=== PATIENT | female | born 1930 | race Caucasian/White ===

== ENCOUNTER 2020-07-15 21:10 | Observation (INO) ==
--- NOTE | 2020-07-15 21:28 | ERNOTE ---
Neuro HPI ER Record Presenting Symptoms: confusion, falling Time Seen by Provider: 07/15/20 21:12 Source: EMS Exam Limitations: clinical condition Allergies/Adverse Reactions: Allergies Allergy/AdvReac Type Severity Reaction Status Date / Time Penicillins AdvReac Mild ITCHING, Verified 07/15/20 21:43 N/V orange juice AdvReac Other Verified 07/15/20 21:43 Home Medications: HOME MEDICATIONS ascorbic acid (vitamin C) 1,000 mg tablet 1 g PO DAILY tab 04/20/18 [Last Taken Unknown] blood sugar diagnostic See Dose Instructions .ROUTE .MEDSUPPLY #20 ea 04/20/18 [Last Taken Unknown] blood-glucose meter See Dose Instructions .ROUTE .MEDSUPPLY #1 ea 04/20/18 [Last Taken Unknown] calcium carbonate 500 mg calcium (1,250 mg) tablet 500 mg PO DAILY tab 04/20/18 [Last Taken Unknown] cyanocobalamin (B12)-cobamamide 5,000 mcg-100 mcg sublingual lozenge madyson SL 04/20/18 [Last Taken Unknown] ferrous gluconate 324 mg (38 mg iron) tablet 324 mg PO DAILY tab 04/20/18 [Last Taken Unknown] clzurwswypid-dbamygbd-dabiox 1 tab PO DAILY 04/20/18 [Last Taken Unknown] nitroglycerin 0.4 mg sublingual tablet 0.4 mg SL Q5-15M PRN 04/20/18 [Last Taken Unknown] pyridoxine (vitamin B6) 100 mg tablet 100 mg PO DAILY tab 04/20/18 [Last Taken Unknown] vitamin E (dl, acetate) 450 mg (1,000 unit) capsule 1,000 unit PO DAILY 04/20/18 [Last Taken Unknown] metoprolol tartrate 100 mg tablet See Rx Instructions .ROUTE .COMPLEX #270 unknown measurement unit code: tablet 03/30/20 [Last Taken Unknown] losartan 50 mg tablet 50 mg PO DAILY #30 tab 05/12/20 [Last Taken Unknown] Durable Medical Equipment 0 .ROUTE .MEDSUPPLY #1 ea 06/23/20 [Last Taken Unknown] walker See Rx Instructions .ROUTE .MEDSUPPLY #1 ea 06/23/20 [Last Taken Unknown] apixaban 2.5 mg tablet See Rx Instructions .ROUTE .COMPLEX #180 unknown measurement unit code: tablet 07/03/20 [Last Taken Unknown] escitalopram oxalate 5 mg tablet 5 mg PO DAILY #90 tab 07/03/20 [Last Taken Unknown] simvastatin 40 mg tablet See Rx Instructions .ROUTE .COMPLEX #90 unknown measurement unit code: tablet 07/03/20 [Last Taken Unknown] torsemide 10 mg tablet See Rx Instructions .ROUTE .COMPLEX #90 unknown measurement unit code: tablet 07/03/20 [Last Taken Unknown] glimepiride 4 mg tablet See Rx Instructions .ROUTE .COMPLEX #90 unknown measurement unit code: tablet 07/06/20 [Last Taken Unknown] ciprofloxacin HCl 500 mg tablet 500 mg PO BID #6 tab 07/14/20 [Last Taken Unknown] - History of Present Illness Narrative: Patient presents per [facility] ambulance. Family found patient confused on the floor. She was last seen about an hour prior to that around 194 this evening. Patient had taken a urine sample to the doctor earlier today and diagnosed with a UTI although was not seen. Patient does have baseline dementia but is much more confused over her normal. Onset: sudden onset Severity: severe Context: fall - Character of Deficits Additional Deficits: Present: impaired speech, decrease ability to stand Baseline Cognition: Present: alert but disoriented to time Baseline Gait: Present: walks w/o assistance Review of Systems - Narrative Narrative: ROS taken from patient's daughter - Review of Systems Constitutional: Present: recent illness, weakness, fatigue Respiratory: Absent: shortness of breath, cough Gastrointestinal/Abdominal: Absent: nausea, vomiting Genitourinary: Present: See HPI Skin: Absent: rash Neurological: Present: dizziness/light-headedness, weakness Hematologic/Lymphatic: Present: easy bruising Medical History (Last Reviewed 07/16/20 @ 00:26 by Reji Saxena DO) Anemia Onset Date: Unknown Aortic sclerosis Onset Date: Unknown Blood transfusion Onset Date: Unknown CAD (coronary artery disease) Onset Date: Unknown Cataract Onset Date: Unknown Diabetes Onset Date: Unknown HTN (hypertension) Onset Date: Unknown Hyperlipidemia Onset Date: Unknown Surgical History: Surgical History (Last Reviewed 07/16/20 @ 00:26 by Reji Saxena DO) Hx of CABG Onset Date: ~1995 Hx of adenoidectomy Onset Date: Unknown Hx of section x4 Hx of colonoscopy Onset Date: 07/20/09 Dr. Bermudez - normal Hx of tonsillectomy Onset Date: Unknown S/P ORIF (open reduction internal fixation) fracture Onset Date: 01/13/04 Left ankle - Dr. Lindsey Uterine cyst Onset Date: Unknown Cyst removed Family History: Family History (Last Reviewed 07/16/20 @ 00:26 by Reji Saxena DO) Brother History of bowel resection CAD (coronary artery disease) Brother , Age 54 Asbetos Related Disease Diptheria Father , Age 63 Heart disease Mother , Age 69 Diabetes Heart disease Sister Diabetes Cancer Colon Cancer Sister , Age 81 Hx of heart bypass surgery from heart bypass. Social History: (Last Reviewed 07/16/20 @ 00:26 by Reji Saxena DO) Social History: Marital status: / lives independently: Yes current occupational status: retired Highest education level completed: high school graduate Service: No Tobacco: Smoking Status: Never smoker Alcohol: alcohol intake: never Substance Use: substance use type: does not use Dietary Habits: caffeine: Yes caffeine comment: 2 daily Physical Exam - Physical Exam General Appearance: Present: wd/wn, no apparent distress, other - Opens eyes spontaneously but does not obey commands Head Exam: Present: normal inspection, no evidence of injury Eye Exam: Normal inspection: bilateral Ears, Nose, Throat: Present: normal ENT inspection Neck: Present: normal inspection, nontender Respiratory: Present: no respiratory distress, no accessory muscle use Cardiovascular/Chest: Present: regular rate, rhythm Gastrointestinal/Abdominal: Present: nondistended, soft Extremity Exam: Present: normal except - Neurological Exam: Present: other - Patient does not obey any commands. Patient does open eyes and occasionally moves her head. Skin Exam: Present: normal color, warm/dry Lymphatic Exam: Present: no adenopathy Vel Coma Scale - Assess Eye Opening: Spontaneous Motor: Localizes to Pain Verbal: None - Total Coma Scale Total: 10 Initial Stroke Assessment - Date/Time of assessment Stroke Scale Date: 07/15/20 Stroke Scale Time: 21:10 - NIH Stroke Scale Level of Consciousness: Alert LOC Questions (Year and Age): Answers neither correctly LOC Commands (open/close eyes/fist): Performs one correctly Lateral Gaze Paresis: None Visual Field Loss: No visual loss Facial Palsy: Normal movement Right Arm Motor (10 sec hold): No drift Left Arm Motor (10 sec hold): No drift Right Leg Motor (5 sec hold): Not testable Left Leg Motor (5 sec hold): Not testable Limb Ataxia (finger/nose heel/rodriguez): Untestable Sensory Loss (pinprick arms/legs/face): No sensory loss Language Aphasia (description/naming/reading): No aphasia; normal Dysarthria (speech clarity): Normal articulation Neglect Inattention (visual/tactile/auditory/spatial/person): Partial neglect Initial Stroke Scale Score:: 4 Progress - Results and Orders Patient's Lab Results:: I have reviewed the patient's lab results. Results and Orders: Laboratory Tests 07/15/20 07/15/20 07/15/20 21:40 21:40 21:40 WBC 9.7 Hgb 11.2 L Hct 33.9 L Plt Count 231 PT 12.7 H INR (Anticoag Therapy) 1.30 H PTT ([facility]) 26.9 Sodium 137 Potassium 3.1 L Chloride 99 BUN 32 H Creatinine 1.80 H Random Glucose 206 H Lactic Acid, Venous Calcium 8.9 Total Bilirubin 0.5 AST 21 ALT 24 Alkaline Phosphatase 63 Creatine Kinase 37 07/15/20 21:40 WBC Hgb Hct Plt Count PT INR (Anticoag Therapy) PTT ([facility]) Sodium Potassium Chloride BUN Creatinine Random Glucose Lactic Acid, Venous 2.6 H* Calcium Total Bilirubin AST ALT Alkaline Phosphatase Creatine Kinase Laboratory Tests 07/15/20 23:22 Urine Color Yellow Urine Appearance Clear Urine pH 7.5 Ur Specific Range 1.015 Urine Ketones Negative Urine Blood Negative Urine Nitrate Negative Ur Leukocyte Esterase Negative - Vital Signs Patient's Vital Signs:: I have reviewed the patient's vital signs. - EKG EKG #1 EKG: RBBB, nonspecific ST T wave changes - X-Ray X-Ray #1 X-Ray: chest Interpretation: Reviewed by me X-ray Comments: IMPRESSION: Bilateral perihilar and bibasilar heterogeneous opacities may represent pulmonary edema. Multilobar pneumonia could also be considered. Probable small left pleural effusion. Electronically signed by Chioma Gardner D.O.. - CT/Ultrasound CT/Ultrasound Narrative: CT brain without contrast: 1. No evidence of acute infarct or parenchymal hemorrhage. 2. Remote lacunar infarcts in the basal ganglia. 3. Chronic small vessel ischemic changes. 4. No fracture or extra-axial fluid collections. - Progress/Reassessment Progress Note-Subjective: 07/15/20 21:42 The patient's daughter whom she has been staying with came back into the room and is able to get further history from her. She states that the patient has been not her normal for 2 or 3 days and the patient has been living with this daughter for 3 weeks because she was no longer safe to stay alone due to her dementia. Daughter states that the patient has taken antibiotics today for her UTI but has not improved and has actually been getting worse. 07/16/20 00:27 Patient did improve to obeying some commands but still very confused and not answering questions. 07/16/20 00:[address] Graham she agrees with observation admission fluids and IV antibiotics. Departure Clinical Impression: UTI (urinary tract infection) Qualifiers: Urinary tract infection type: acute pyelonephritis Qualified Code(s): N10 - Acute pyelonephritis Altered mental status Qualifiers: Altered mental status type: delirium Qualified Code(s): R41.0 - Disorientation, unspecified - Departure Disposition: Still a patient Condition: Good
[2020-07-15 21:45] LABS: Hematocrit 33.9 % (37.0-47.0); Hemoglobin 11.2 gm/dL (12.5-16.0); Mean Cell Volume 95.5 fl (78-100); Mean Corpuscular Hemoglobin 31.5 pg (27-31); Mean Platelet Volume 10.1 fl (8-12.5); Neutrophil # 6.5 K/mm3 (1.3-6.0); Neutrophil % 67.7 % (42-75.0); Platelet Count 231 K/mm3 (150-450); Red Blood Count 3.55 M/mm3 (4.2-5.4); Red Cell Distribution Width 12.6 % (11.5-14.0); White Blood Count 9.7 K/mm3 (4.0-10.5)
[2020-07-15 21:56] LABS: Prothrombin Time (Patient) 12.7 Seconds (9.1-10.7)
[2020-07-15 21:57] LABS: INR 1.3 INR (0.92-1.08); Partial Thrombolplastin Time 26.9 Seconds (24-32)
[2020-07-15 21:58] LABS: Albumin * 2.9 gm/dl (3.4-5.0); Anion Gap 11.7 mmol/L (6.8-13.8); BUN/Creatinine Ratio 17.8 (9.0-21.6); Bilirubin, Total 0.5 mg/dL (0.0-1.1); Ca. Corrected For Albumin 9.5 mg/dL (8.4-10.2); Calcium * 8.9 mg/dL (7.9-10.9); Carbon Dioxide 29.4 mmol/L (24-32.6); Potassium 3.1 mmol/L (3.4-4.6); Total Protein 7.2 gm/dL (6.2-8.2)
[2020-07-15] MEDS ORDERED: cefTRIAXone SODIUM 1,000 MG/100 ML BAG IV ONE (23:23)
[2020-07-15 23:36] LABS: Urine Bilirubin Negative (NEGATIVE); Urine Blood Negative /ul (NEGATIVE); Urine Ketone Negative (NEGATIVE); Urine Nitrite Negative (NEGATIVE); Urine Protein Negative (NEGATIVE); Urine Specific Gravity 1.015 SP.GR. (1.005-1.010); Urine Urobilinogen Normal (NORMAL); Urine pH 7.5 pH (5.0-7.0)
[2020-07-15 23:42] LABS: Urine Appearance Clear (CLEAR); Urine Bacteria None Seen; Urine Color Yellow; Urine RBC None Seen /hpf (0-5); Urine WBC None Seen /hpf (0-5)
[2020-07-16] MEDS: NORMAL SALINE 1,000 ML IV PRN ×2 (00:55→08:29)
[2020-07-16] MEDS ORDERED: METOPROLOL TARTRATE 100 MG TABLET PO SCH (09:00)
[2020-07-16] MEDS ORDERED: OMEGA-3 FATTY ACIDS 1 CAP CAPSULE PO SCH (09:00)
[2020-07-16] MEDS ORDERED: TORSEMIDE 10 MG TABLET PO SCH (09:00)
[2020-07-16] MEDS ORDERED: ESCITALOPRAM OXALATE 10 MG TAB PO SCH (09:00)
[2020-07-16] MEDS ORDERED: GLIMEPIRIDE 4 MG TABLET PO SCH (09:00)
[2020-07-16] MEDS ORDERED: APIXABAN 2.5 MG TABLET PO SCH (09:00)
[2020-07-16] MEDS ORDERED: LOSARTAN POTASSIUM 50 MG TABLET PO SCH (09:00)
[2020-07-16] MEDS ORDERED: POTASSIUM BICARBONATE/CIT AC 25 MEQ TABLET.EFF PO ONE (09:21)
[2020-07-16] MEDS ORDERED: CIPROFLOXACIN HCL 500 MG TABLET PO SCH (10:00)
--- NOTE | 2020-07-16 10:06 | HPDIS ---
Chief Complaint - Chief Complaint Date of Service: 07/16/20 Time of Service: 09:29 Chief Complaint: Altered mental status, fall History of Present Illness: 89-year-old female with a past medical history of dementia, anemia, aortic scl erosis, CAD, CHF, CKD, A. fib, normal pressure hydrocephalus diabetes, hypertension, hyperlipidemia presents from home status post fall. Family found the patient confused on the floor and she was brought to the emergency department. Patient had been started on ciprofloxacin for a UTI by her PCP the day prior to presentation. CT head in the emergency room was negative for any acute intracranial process. 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 CT scan was compared to a prior head CT performed on April 22, 2020. She had mild hypokalemia 3.1, GFR of 28 which was slightly worse than her baseline of 30-37, lactic acid of 2.6, UA was negative. Family states that she was evaluated for normal pressure hydrocephalus but was determined to not be a good candidate for a spinal tap secondary to her conges tive heart failure. Admitted for UTI with altered mental status and started on Rocephin. Medical History (Last Reviewed 07/16/20 @ 03:10 by Amber Gutierrez RN) Anemia Onset Date: Unknown Aortic sclerosis Onset Date: Unknown Blood transfusion Onset Date: Unknown CAD (coronary artery disease) Onset Date: Unknown Cataract Onset Date: Unknown Diabetes Onset Date: Unknown HTN (hypertension) Onset Date: Unknown Hyperlipidemia Onset Date: Unknown Surgical History: Surgical History (Last Reviewed 07/16/20 @ 03:10 by Amber Gutierrez RN) Hx of CABG Onset Date: ~1995 Hx of adenoidectomy Onset Date: Unknown Hx of section x4 Hx of colonoscopy Onset Date: 07/20/09 Dr. Bermudez - normal Hx of tonsillectomy Onset Date: Unknown S/P ORIF (open reduction internal fixation) fracture Onset Date: 01/13/04 Left ankle - Dr. Lindsey Uterine cyst Onset Date: Unknown Cyst removed Family History: Family History (Last Reviewed 07/16/20 @ 00:26 by Reji Saxena DO) Brother History of bowel resection CAD (coronary artery disease) Brother , Age 54 Asbetos Related Disease Diptheria Father , Age 63 Heart disease Mother , Age 69 Diabetes Heart disease Sister Diabetes Cancer Colon Cancer Sister , Age 81 Hx of heart bypass surgery from heart bypass. Social History: (Last Reviewed 07/16/20 @ 00:26 by Reji Saxena DO) Social History: Marital status: / lives independently: Yes current occupational status: retired Highest education level completed: high school graduate Service: No Tobacco: Smoking Status: Never smoker Alcohol: alcohol intake: never Substance Use: substance use type: does not use Dietary Habits: caffeine: Yes caffeine comment: 2 daily Review Of Systems (GEN) - Review of Systems Generalized/Overall Review: Absent: Fever Respiratory: Absent: Shortness of Breath Cardiac: Absent: Chest Pain Abdominal: Absent: Abdominal Pain Genitourinary: Present: Incontinent Misc: All systems neg except as marked Immunizations: IMMUNIZATION HX Immunizations Up to Date Yes Hx Pneumococcal Vaccination Yes Allergies/Adverse Reactions: Allergies Allergy/AdvReac Type Severity Reaction Status Date / Time Penicillins AdvReac Mild ITCHING, Verified 07/15/20 21:43 N/V orange juice AdvReac Other Verified 07/15/20 21:43 Home Medications: HOME MEDICATIONS ascorbic acid (vitamin C) 1,000 mg tablet 1 g PO DAILY tab 04/20/18 [Last Taken Unknown] blood sugar diagnostic See Dose Instructions .ROUTE .MEDSUPPLY #20 ea 04/20/18 [Last Taken Unknown] blood-glucose meter See Dose Instructions .ROUTE .MEDSUPPLY #1 ea 04/20/18 [Last Taken Unknown] calcium carbonate 500 mg calcium (1,250 mg) tablet 500 mg PO DAILY tab 04/20/18 [Last Taken Unknown] cyanocobalamin (B12)-cobamamide 5,000 mcg-100 mcg sublingual lozenge madyson SL 04/20/18 [Last Taken Unknown] ferrous gluconate 324 mg (38 mg iron) tablet 324 mg PO DAILY tab 04/20/18 [Last Taken Unknown] gbpawvucwiqn-nxhidnnr-hdcxvl 1 tab PO DAILY 04/20/18 [Last Taken Unknown] nitroglycerin 0.4 mg sublingual tablet 0.4 mg SL Q5-15M PRN 04/20/18 [Last Taken Unknown] pyridoxine (vitamin B6) 100 mg tablet 100 mg PO DAILY tab 04/20/18 [Last Taken Unknown] vitamin E (dl, acetate) 450 mg (1,000 unit) capsule 1,000 unit PO DAILY 04/20/18 [Last Taken Unknown] losartan 50 mg tablet 50 mg PO DAILY #30 tab 05/12/20 [Last Taken Unknown] Durable Medical Equipment 0 .ROUTE .MEDSUPPLY #1 ea 06/23/20 [Last Taken Unknown] walker See Rx Instructions .ROUTE .MEDSUPPLY #1 ea 06/23/20 [Last Taken Unknown] escitalopram oxalate 5 mg tablet 5 mg PO DAILY #90 tab 07/03/20 [Last Taken Unknown] ciprofloxacin HCl 500 mg tablet 500 mg PO BID #6 tab 07/14/20 [Last Taken Unknown] Apixaban [Eliquis] 2.5 mg PO BID 07/16/20 [Last Taken Unknown] Glimepiride 4 mg PO DAILY 07/16/20 [Last Taken Unknown] Metoprolol Tartrate 100 mg PO BID 07/16/20 [Last Taken Unknown] [place]-3 Fatty Acids/Fish Oil [Fish Oil 1,000 mg Capsule] 2 ea PO BID 07/16/20 [Last Taken Unknown] Simvastatin 40 mg PO DAILY 07/16/20 [Last Taken Unknown] Torsemide 10 mg PO DAILY 07/16/20 [Last Taken Unknown] Exam - Exam Vital Signs: Vital Signs - Last Taken Temp 36.9 C 07/16/20 07:50 Pulse 68 07/16/20 07:50 Resp 20 07/16/20 07:50 BP 128/47 07/16/20 07:50 Pulse Ox 96 07/16/20 07:50 Constitutional: Present: Alert, Cooperative, Well developed, Well nourished, No distress, Elderly. Absent: Oriented x3 - She responds to verbal and tactile stimuli but does not respond to questions. ENT Exam: Present: hearing grossly normal, moist mucous membranes Eye Exam: bilateral eye: normal inspection, PERRL Neck: Present: non-tender, supple. Absent: lymphadenopathy (R), lymphadenopathy (L) Back Exam: Present: no CVA tenderness. Absent: vertebral tenderness Respiratory: Present: no respiratory distress, no accessory muscle use, crackles, No wheezing. Absent: rhonchi - Mild Cardiovascular/Chest: Present: normal peripheral pulses, regular rate, rhythm, no edema, systolic murmur Peripheral Pulses: dorsalis-pedis (R): 1+, dorsalis-pedis (L): 1+ Abdomen: Present: Normal bowel sounds, soft, nontender Extremity: Present: no pedal edema Skin Exam: Present: normal color, warm/dry Neurologic: Present: alert Appearance: Present: appropriate appearance, impaired insight. Absent: appro priate insight Eye contact: Present: cooperative Thoughts: Present: normal mood /affect Diagnostic Studies: Abnormal Lab Results 07/15/20 07/15/20 07/15/20 Range/Units 21:40 21:40 21:40 RBC 3.55 L (4.2-5.4) M/mm3 Hgb 11.2 L (12.5-16.0) gm/dL Hct 33.9 L (37.0-47.0) % MCH 31.5 H (27-31) pg Immature Gran % (Auto) 0.60 H (0.001-0.429) % Immature Gran # (Auto) 0.06 H (0.000-0.0310) K/mm3 Monocytes % 10.6 H (0.0-9) % Neutrophils # 6.5 H (1.3-6.0) K/mm3 ESR 102 H (0-15) mm/hr PT 12.7 H (9.1-10.7) Seconds INR (Anticoag Therapy) 1.30 H (0.92-1.08) INR Potassium (3.4-4.6) mmol/L BUN (3-23) mg/dL Creatinine (0.4-1.4) mg/dL Est GFR (Non-Af Amer) (60-130) mL/min Random Glucose (70-110) mg/dL Lactic Acid, Venous (0.4-2.0) mmol/L Albumin (3.4-5.0) gm/dl 07/15/20 07/15/20 07/16/20 Range/Units 21:40 21:40 00:25 RBC (4.2-5.4) M/mm3 Hgb (12.5-16.0) gm/dL Hct (37.0-47.0) % MCH (27-31) pg Immature Gran % (Auto) (0.001-0.429) % Immature Gran # (Auto) (0.000-0.0310) K/mm3 Monocytes % (0.0-9) % Neutrophils # (1.3-6.0) K/mm3 ESR (0-15) mm/hr PT (9.1-10.7) Seconds INR (Anticoag Therapy) (0.92-1.08) INR Potassium 3.1 L (3.4-4.6) mmol/L BUN 32 H (3-23) mg/dL Creatinine 1.80 H (0.4-1.4) mg/dL Est GFR (Non-Af Amer) 28 L (60-130) mL/min Random Glucose 206 H (70-110) mg/dL Lactic Acid, Venous 2.6 H* 2.7 H* (0.4-2.0) mmol/L Albumin 2.9 L (3.4-5.0) gm/dl Laboratory Results WBC 9.7 K/mm3 (4.0-10.5) 07/15/20 21:40 RBC 3.55 M/mm3 (4.2-5.4) L 07/15/20 21:40 Hgb 11.2 gm/dL (12.5-16.0) L 07/15/20 21:40 Hct 33.9 % (37.0-47.0) L 07/15/20 21:40 MCV 95.5 fl (78-100) 07/15/20 21:40 MCH 31.5 pg (27-31) H 07/15/20 21:40 MCHC 33.0 g/dl (32-36) 07/15/20 21:40 RDW 12.6 % (11.5-14.0) 07/15/20 21:40 Plt Count 231 K/mm3 (150-450) 07/15/20 21:40 MPV 10.1 fl (8-12.5) 07/15/20 21:40 Immature Gran % (Auto) 0.60 % (0.001-0.429) H 07/15/20 21:40 Immature Gran # (Auto) 0.06 K/mm3 (0.000-0.0310) H 07/15/20 21:40 Neutrophils % 67.7 % (42-75.0) 07/15/20 21:40 Lymphocytes % 20.1 % (20-51) 07/15/20 21:40 Monocytes % 10.6 % (0.0-9) H 07/15/20 21:40 Eosinophils % 0.7 % (0.0-3.0) 07/15/20 21:40 Basophils % 0.3 % (0.0-1.0) 07/15/20 21:40 Nucleated RBC % 0.0 k/mm3 (0-1) 07/15/20 21:40 Neutrophils # 6.5 K/mm3 (1.3-6.0) H 07/15/20 21:40 Lymphocytes # 1.94 k/mm3 (1.5-3.5) 07/15/20 21:40 Monocytes # 1.0 k/mm3 (0.0-1.0) 07/15/20 21:40 Eosinophils # 0.1 k/mm3 (0.0-0.7) 07/15/20 21:40 Absolute Basophils 0.0 k/mm3 (0.0-0.1) 07/15/20 21:40 ESR 102 mm/hr (0-15) H 07/15/20 21:40 PT 12.7 Seconds (9.1-10.7) H 07/15/20 21:40 INR (Anticoag Therapy) 1.30 INR (0.92-1.08) H 07/15/20 21:40 PTT (Dent) 26.9 Seconds (24-32) 07/15/20 21:40 Sodium 137 mmol/L (132-142) 07/15/20 21:40 Plasma Sodium 139 mmol/L (130-142) 07/15/20 21:40 Potassium 3.1 mmol/L (3.4-4.6) L 07/15/20 21:40 Chloride 99 mmol/L (97-106) 07/15/20 21:40 Carbon Dioxide 29.4 mmol/L (24-32.6) 07/15/20 21:40 Anion Gap 11.7 mmol/L (6.8-13.8) 07/15/20 21:40 BUN 32 mg/dL (3-23) H 07/15/20 21:40 Creatinine 1.80 mg/dL (0.4-1.4) H 07/15/20 21:40 Est GFR (Non-Af Amer) 28 mL/min (60-130) L 07/15/20 21:40 BUN/Creatinine Ratio 17.8 (9.0-21.6) 07/15/20 21:40 Random Glucose 206 mg/dL (70-110) H 07/15/20 21:40 Lactic Acid, Venous 2.7 mmol/L (0.4-2.0) H* 07/16/20 00:25 Calcium 8.9 mg/dL (7.9-10.9) 07/15/20 21:40 Calcium Adj for Albumin 9.5 mg/dL (8.4-10.2) 07/15/20 21:40 Total Bilirubin 0.5 mg/dL (0.0-1.1) 07/15/20 21:40 AST 21 U/L (0-48) 07/15/20 21:40 ALT 24 U/L (19-67) 07/15/20 21:40 Alkaline Phosphatase 63 U/L (50-170) 07/15/20 21:40 Creatine Kinase 37 U/L (0-259) 07/15/20 21:40 Total Protein 7.2 gm/dL (6.2-8.2) 07/15/20 21:40 Albumin 2.9 gm/dl (3.4-5.0) L 07/15/20 21:40 Urine Color Yellow 07/15/20 23:22 Urine Appearance Clear (CLEAR) 07/15/20 23:22 Urine pH 7.5 pH (5.0-7.0) 07/15/20 23:22 Ur Specific [place] 1.015 SP.GR. (1.005-1.010) 07/15/20 23:22 Urine Protein Negative mg/dL (NEGATIVE) 07/15/20 23:22 Urine Glucose (UA) Negative mg/dL (NEGATIVE) 07/15/20 23:22 Urine Ketones Negative mg/dL (NEGATIVE) 07/15/20 23:22 Urine Blood Negative /ul (NEGATIVE) 07/15/20 23:22 Urine Nitrate Negative (NEGATIVE) 07/15/20 23:22 Urine Bilirubin Negative mg/dl (NEGATIVE) 07/15/20 23:22 Urine Urobilinogen Normal EU/dl (NORMAL) 07/15/20 23:22 Ur Leukocyte Esterase Negative /ul (NEGATIVE) 07/15/20 23:22 Urine RBC None seen /hpf (0-5) 07/15/20 23:22 Urine WBC None seen /hpf (0-5) 07/15/20 23:22 Ur Epithelial Cells None seen /hpf (0-5) 07/15/20 23:22 Urine Bacteria None seen (NONE) 07/15/20 23:22 Urine Culture Comments Culture to follow 07/15/20 23:22 SARS-CoV-2 (PCR) Not detected (NotDetected) 07/16/20 00:35 Assessment/Plan - Narrative Narrative: 89-year-old female with a past medical history of dementia, anemia, aortic sclerosis, CAD, CHF, CKD, A. fib, normal pressure hydrocephalus diabetes, hypertension, hyperlipidemia presents from home status post fall. Family found the patient confused on the floor and she was brought to the emergency department. Patient had been started on ciprofloxacin for a UTI by her PCP the day prior to presentation. CT head in the emergency room was negative for any acute intracranial process. 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 CT scan was compared to a prior head CT performed on April 22, 2020. She had mild hypokalemia 3.1, GFR of 28 which was slightly worse than her baseline of 30-37, lactic acid of 2.6, UA was negative. Family states that she was evaluated for normal pressure hydrocephalus but was determined to not be a good candidate for a spinal tap secondary to her congestive heart failure. She was admitted for UTI with altered mental status and started on Rocephin. Plan #1 restart her ciprofloxacin 500 mg twice daily #2 resume home medications for comorbidities #3 Start discharge planning - Assessment/Plan (1) UTI (urinary tract infection) Problem: Acute Qualifiers: Urinary tract infection type: acute pyelonephritis Qualified Code(s): N10 - Acute pyelonephritis (2) Altered mental status Problem: Acute Qualifiers: Altered mental status type: delirium Qualified Code(s): R41.0 - Disorientation, unspecified (3) Normal pressure hydrocephalus Problem: Suspected (4) Dementia Problem: Acute Qualifiers: Dementia type: unspecified type Dementia behavioral disturbance: without behavioral disturbance Qualified Code(s): F03.90 - Unspecified dementia without behavioral disturbance (5) Diabetes Problem: Chronic Qualifiers: Diabetes mellitus type: type 2 Diabetes mellitus residential insulin use: without residential use Diabetes mellitus complication status: with kidney complications Diabetes mellitus complication detail: with chronic kidney disease Chronic kidney disease stage: stage 3 (moderate) (6) CRF (chronic renal failure) Problem: Chronic Qualifiers: Chronic kidney disease stage: stage 3 (moderate) (7) Hyperlipidemia Problem: Chronic Qualifiers: Hyperlipidemia type: pure hypercholesterolemia Qualified Code(s): E78.00 - Pure hypercholesterolemia, unspecified; E78.0 - Pure hypercholesterolemia (8) Hypertension Problem: Chronic Qualifiers: Hypertension type: essential hypertension Qualified Code(s): I10 - Essential (primary) hypertension (9) Afib Problem: Chronic Qualifiers: Atrial fibrillation type: chronic (10) CHF (congestive heart failure) Problem: Chronic (1) UTI (urinary tract infection) Problem: Acute Qualifiers: Urinary tract infection type: acute pyelonephritis Qualified Code(s): N10 - Acute pyelonephritis (2) Altered mental status Problem: Acute Qualifiers: Altered mental status type: delirium Qualified Code(s): R41.0 - Disorientation, unspecified (3) Normal pressure hydrocephalus Problem: Suspected (4) Dementia Problem: Acute Qualifiers: Dementia type: unspecified type Dementia behavioral disturbance: without behavioral disturbance Qualified Code(s): F03.90 - Unspecified dementia without behavioral disturbance (5) Diabetes Problem: Chronic Qualifiers: Diabetes mellitus type: type 2 Diabetes mellitus termite treater insulin use: without termite treater use Diabetes mellitus complication status: with kidney complications Diabetes mellitus complication detail: with chronic kidney disease Chronic kidney disease stage: stage 3 (moderate) (6) CRF (chronic renal failure) Problem: Chronic Qualifiers: Chronic kidney disease stage: stage 3 (moderate) (7) Hyperlipidemia Problem: Chronic Qualifiers: Hyperlipidemia type: pure hypercholesterolemia Qualified Code(s): E78.00 - Pure hypercholesterolemia, unspecified; E78.0 - Pure hypercholesterolemia (8) Hypertension Problem: Chronic Qualifiers: Hypertension type: essential hypertension Qualified Code(s): I10 - Essential (primary) hypertension (9) Afib Problem: Chronic Qualifiers: Atrial fibrillation type: chronic (10) CHF (congestive heart failure) Problem: Chronic Hospital Course: 89-year-old female with a past medical history of dementia, anemia, aortic sclerosis, CAD, CHF, CKD, A. fib, normal pressure hydrocephalus diabetes, hypertension, hyperlipidemia presents from home status post fall. Family found the patient confused on the floor and she was brought to the emergency department. Patient had been started on ciprofloxacin for a UTI by her PCP the day prior to presentation. CT head in the emergency room was negative for any acute intracranial process. 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 CT scan was compared to a prior head CT performed on April 22, 2020. She had mild hypokalemia 3.1, GFR of 28 which was slightly worse than her baseline of 30-37, lactic acid of 2.6, UA was negative. Family states that she was evaluated for normal pressure hydrocephalus but was determined to not be a good candidate for a spinal tap secondary to her congestive heart failure. She was admitted for UTI with altered mental status and started on Rocephin. She is stable to be discharged home today with home hospice. The family has decided due to her comorbidities including dementia, congestive heart failure and normal pressure hydrocephalus she is not able to care for herself and they would like her to go home with hospice. Procedures Performed: none Results and Findings: Lab Pending Results 07/15/20 21:40: WBC 9.7, RBC 3.55 L, Hgb 11.2 L, Hct 33.9 L, MCV 95.5, MCH 31.5 H, MCHC 33.0, RDW 12.6, Plt Count 231, MPV 10.1, Immature Gran % (Auto) 0.60 H, Immature Gran # (Auto) 0.06 H, Neutrophils % 67.7, Lymphocytes % 20.1, Monocytes % 10.6 H, Eosinophils % 0.7, Basophils % 0.3, Nucleated RBC % 0.0, Neutrophils # 6.5 H, Lymphocytes # 1.94, Monocytes # 1.0, Eosinophils # 0.1, Absolute Basophils 0.0 07/15/20 21:40: ESR 102 H 07/15/20 21:40: PT 12.7 H, INR (Anticoag Therapy) 1.30 H, PTT ([place]) 26.9 07/15/20 21:40: Sodium 137, Plasma Sodium 139, Potassium 3.1 L, Chloride 99, Carbon Dioxide 29.4, Anion Gap 11.7, BUN 32 H, Creatinine 1.80 H, Est GFR (Non- Af Amer) 28 L, BUN/Creatinine Ratio 17.8, Random Glucose 206 H, Calcium 8.9, Calcium Adj for Albumin 9.5, Total Bilirubin 0.5, AST 21, ALT 24, Alkaline Phosphatase 63, Creatine Kinase 37, Total Protein 7.2, Albumin 2.9 L 07/15/20 21:40: Lactic Acid, Venous 2.6 H* 07/15/20 23:22: Urine Color Yellow, Urine Appearance Clear, Urine pH 7.5, Ur Specific [place] 1.015, Urine Protein Negative, Urine Glucose (UA) Negative, Urine Ketones Negative, Urine Blood Negative, Urine Nitrate Negative, Urine Bilirubin Negative, Urine Urobilinogen Normal, Ur Leukocyte Esterase Negative, Urine RBC None seen, Urine WBC None seen, Ur Epithelial Cells None seen, Urine Bacteria None seen, Urine Culture Comments Culture to follow 07/16/20 00:25: Lactic Acid, Venous 2.7 H* 07/16/20 00:35: SARS-CoV-2 (PCR) Not detected Discharge Location: Home Disposition: Hospice Home Home Health Agency: [facility] Condition: Poor Face to Face Encounter completed per [facility] Guidelines: Yes Discharge Activity: Activity as tolerated Discharge Diet: General/regular food Referrals: Marysol Storm MD [Primary Care Provider] - Additional Patient Instructions (free text): [facility] at home. Please fax discharge information. Complete Home Medications List: Complete Home Medication List: ascorbic acid (vitamin C) 1,000 mg tablet 1 g PO DAILY tab 04/20/18 blood sugar diagnostic See Dose Instructions .ROUTE .MEDSUPPLY #20 ea 04/20/18 blood-glucose meter See Dose Instructions .ROUTE .MEDSUPPLY #1 ea 04/20/18 calcium carbonate 500 mg calcium (1,250 mg) tablet 500 mg PO DAILY tab 04/20/18 cyanocobalamin (B12)-cobamamide 5,000 mcg-100 mcg sublingual lozenge madyson SL 04/20/18 ferrous gluconate 324 mg (38 mg iron) tablet 324 mg PO DAILY tab 04/20/18 [id number] 1 tab PO DAILY 04/20/18 nitroglycerin 0.4 mg sublingual tablet 0.4 mg SL Q5-15M PRN 04/20/18 pyridoxine (vitamin B6) 100 mg tablet 100 mg PO DAILY tab 04/20/18 vitamin E (dl, acetate) 450 mg (1,000 unit) capsule 1,000 unit PO DAILY 04/20/18 losartan 50 mg tablet 50 mg PO DAILY #30 tab 05/12/20 Durable Medical Equipment 0 .ROUTE .MEDSUPPLY #1 ea 06/23/20 walker See Rx Instructions .ROUTE .MEDSUPPLY #1 ea 06/23/20 escitalopram oxalate 5 mg tablet 5 mg PO DAILY #90 tab 07/03/20 ciprofloxacin HCl 500 mg tablet 500 mg PO BID #6 tab 07/14/20 Apixaban [Eliquis] 2.5 mg PO BID 07/16/20 Glimepiride 4 mg PO DAILY 07/16/20 Metoprolol Tartrate 100 mg PO BID 07/16/20 [place]-3 Fatty Acids/Fish Oil [Fish Oil 1,000 mg Capsule] 2 ea PO BID 07/16/20 Simvastatin 40 mg PO DAILY 07/16/20 Torsemide 10 mg PO DAILY 07/16/20
[2020-07-16 13:17] VITALS: BP 159/54
[2020-07-16] MEDS ORDERED: SIMVASTATIN 40 MG TABLET PO SCH (21:00)
== END 2020-07-16 13:39 | disposition hospice, home (50) ==
LOC: MS 21:10 → ER 21:10 → MS 07-16 01:57
PROVIDERS: ADMIT Internal Medicine; ATTEND Internal Medicine

== ENCOUNTER 2020-08-03 18:35 | Observation (INO) ==
[2020-08-03 19:34] LABS: Hematocrit 35.7 % (37.0-47.0); Hemoglobin 11.8 gm/dL (12.5-16.0); Mean Cell Volume 93.9 fl (78-100); Mean Corpuscular Hemoglobin 31.1 pg (27-31); Mean Corpuscular Hgb Conc 33.1 g/dl (32-36); Mean Platelet Volume 9.6 fl (8-12.5); Neutrophil # 9.2 K/mm3 (1.3-6.0); Neutrophil % 75.5 % (42-75.0); Platelet Count 312 K/mm3 (150-450); Red Cell Distribution Width 12.7 % (11.5-14.0); White Blood Count 12.1 K/mm3 (4.0-10.5)
[2020-08-03 19:51] LABS: Albumin * 3.3 gm/dl (3.4-5.0); Anion Gap 14.4 mmol/L (6.8-13.8); BUN/Creatinine Ratio 11.8 (9.0-21.6); Bilirubin, Total 0.7 mg/dL (0.0-1.1); Ca. Corrected For Albumin 9.3 mg/dL (8.4-10.2); Calcium * 9.1 mg/dL (7.9-10.9); Carbon Dioxide 25.9 mmol/L (24-32.6); Potassium 3.3 mmol/L (3.4-4.6); Total Protein 7.8 gm/dL (6.2-8.2); Troponin I 0.017 ng/mL (0.00-0.10)
[2020-08-03 20:26] LABS: Urine Bilirubin Negative (NEGATIVE); Urine Blood Negative /ul (NEGATIVE); Urine Ketone Negative (NEGATIVE); Urine Nitrite Negative (NEGATIVE); Urine Protein Negative (NEGATIVE); Urine Urobilinogen Normal (NORMAL)
[2020-08-03 20:42] LABS: Urine Appearance Clear (CLEAR); Urine Bacteria TRACE; Urine Color Yellow; Urine RBC TRACE /hpf (0-5); Urine WBC TRACE /hpf (0-5)
[2020-08-03 20:43] LABS: Urine Hyaline Cast TRACE /LPF
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
[2020-08-03] MEDS ORDERED: FUROSEMIDE 10 MG/ML VIAL IV ONE (21:58)
[2020-08-04] MEDS ORDERED: LORazepam 2 MG/ML DISP.SYRIN IM ONE (00:44)
[2020-08-04] MEDS ORDERED: METOPROLOL TARTRATE 100 MG TABLET PO SCH (10:00)
[2020-08-04] MEDS ORDERED: FLU VACC QS2020-21(6MOS UP)/PF 60 MCG/0.5 ML SYRINGE IM ONE (10:00)
[2020-08-04] MEDS ORDERED: ESCITALOPRAM OXALATE 5 MG TABLET PO SCH (10:00)
[2020-08-04] MEDS ORDERED: LOSARTAN POTASSIUM 50 MG TABLET PO SCH (10:00)
[2020-08-04] MEDS ORDERED: APIXABAN 2.5 MG TABLET PO SCH (10:00)
--- NOTE | 2020-08-04 11:38 | HPDIS ---
Chief Complaint - Chief Complaint Date of Service: 08/04/20 Time of Service: : Chief Complaint: ams, falls History of Present Illness: 89-year-old male with history of CHF, CAD, diabetes, hypertension, hyperlipidemia presented to the ER due to altered mental status increased falls. Patient with normal pressure hydrocephalus. Patient, concerned due to changes in mentation and increased falls. Today patient would not evaluated was not in any acute distress and was mildly confused. Patient denied any pain or concerns. Patient did state she was in the hospital that all she would tell me. Unsure of her mentation at baseline but patient is stable and appears to not be in any acute distress. In the ER last night she was found to have a mildly elevated white count at 12.1, and increased creatinine at 1.95 with a GFR of 26, and elevated BNP at 10,064 she had a negative Covid test and a negative urinalysis. She was placed under observation due to fall risk and patient's family trying to figure out appropriate direction to go for her care whether it be assisted living versus home health. She denies shortness of breath but does have swelling in her lower extremities. Medical History (Last Reviewed 08/03/20 @ 21:23 by RADHA Napier) Anemia Onset Date: Unknown Aortic sclerosis Onset Date: Unknown Blood transfusion Onset Date: Unknown CAD (coronary artery disease) Onset Date: Unknown Cataract Onset Date: Unknown Diabetes Onset Date: Unknown HTN (hypertension) Onset Date: Unknown Hyperlipidemia Onset Date: Unknown Surgical History: Surgical History (Last Reviewed 08/03/20 @ 21:23 by RADHA Napier) Hx of CABG Onset Date: ~1995 Hx of adenoidectomy Onset Date: Unknown Hx of section x4 Hx of colonoscopy Onset Date: 07/20/09 Dr. Bermudez - normal Hx of tonsillectomy Onset Date: Unknown S/P ORIF (open reduction internal fixation) fracture Onset Date: 01/13/04 Left ankle - Dr. Lindsey Uterine cyst Onset Date: Unknown Cyst removed Family History: Family History (Last Reviewed 08/03/20 @ 21:23 by RADHA Napier) Brother History of bowel resection CAD (coronary artery disease) Brother , Age 54 Asbetos Related Disease Diptheria Father , Age 63 Heart disease Mother , Age 69 Diabetes Heart disease Sister Diabetes Cancer Colon Cancer Sister , Age 81 Hx of heart bypass surgery from heart bypass. Social History: (Last Reviewed 08/03/20 @ 21:23 by RADHA Napier) Social History: Marital status: / lives independently: Yes current occupational status: retired Highest level of school completed/degree received: high school graduate Service: No Tobacco: Smoking Status: Never smoker Alcohol: alcohol intake: never Substance Use: substance use type: does not use Dietary Habits: caffeine: Yes caffeine comment: 2 daily Review Of Systems (GEN) - Review of Systems Generalized/Overall Review: Absent: Weakness, Chills, Fever Respiratory: Absent: Shortness of Breath Cardiac: Absent: Chest Pain Musculoskeletal: Absent: Joint Pain Additional Comments: Other review of systems unable to be obtained due to patient's inability to understand questioning and respond appropriately Immunizations: IMMUNIZATION HX Immunizations Up to Date Yes Hx Pneumococcal Vaccination Yes Allergies/Adverse Reactions: Allergies Allergy/AdvReac Type Severity Reaction Status Date / Time Penicillins AdvReac Mild ITCHING, Verified 07/15/20 21:43 N/V orange juice AdvReac Other Verified 07/15/20 21:43 Home Medications: HOME MEDICATIONS blood sugar diagnostic See Dose Instructions .ROUTE .MEDSUPPLY #20 ea 04/20/18 [Last Taken Unknown] blood-glucose meter See Dose Instructions .ROUTE .MEDSUPPLY #1 ea 04/20/18 [Last Taken Unknown] ferrous gluconate 324 mg (38 mg iron) tablet 324 mg PO DAILY tab 04/20/18 [Last Taken Unknown] nitroglycerin 0.4 mg sublingual tablet 0.4 mg SL Q5-15M PRN 04/20/18 [Last Taken Unknown] losartan 50 mg tablet 50 mg PO DAILY #30 tab 05/12/20 [Last Taken Unknown] Durable Medical Equipment 0 .ROUTE .MEDSUPPLY #1 ea 06/23/20 [Last Taken Unknown] walker See Rx Instructions .ROUTE .MEDSUPPLY #1 ea 06/23/20 [Last Taken Unknown] escitalopram oxalate 5 mg tablet 5 mg PO DAILY #90 tab 07/03/20 [Last Taken Unknown] Apixaban [Eliquis] 2.5 mg PO BID 07/16/20 [Last Taken Unknown] Glimepiride 4 mg PO DAILY 07/16/20 [Last Taken Unknown] Metoprolol Tartrate 100 mg PO BID 07/16/20 [Last Taken Unknown] Cheshire-3 Fatty Acids/Fish Oil [Fish Oil 1,000 mg Capsule] 2 ea PO BID 07/16/20 [Last Taken Unknown] Simvastatin 40 mg PO DAILY 07/16/20 [Last Taken Unknown] Torsemide 10 mg PO DAILY 07/16/20 [Last Taken Unknown] Exam - Exam Vital Signs: Vital Signs - Last Taken Temp 35.8 C L 08/04/20 10:49 Pulse 69 08/04/20 10:49 Resp 19 08/04/20 10:49 BP 139/73 08/04/20 10:49 Pulse Ox 96 08/04/20 10:49 Constitutional: Present: Alert, Elderly, Thin and frail. Absent: Oriented x3 - X1 ENT Exam: Present: hard of hearing. Absent: nasal congestion, nasal drainage Eye Exam: bilateral eye: normal inspection, PERRL, EOMI Neck: Present: non-tender, supple Respiratory: Present: lungs clear, normal breath sounds, no accessory muscle use. Absent: respiratory distress Cardiovascular/Chest: Present: regular rate, rhythm, no murmur Abdomen: Present: soft, nontender, nondistended Skin Exam: Present: normal color, warm/dry Appearance: Present: impaired insight, impaired recent memory Eye contact: Present: cooperative, good eye contact Thoughts: Present: normal mood /affect Diagnostic Studies: Abnormal Lab Results 08/03/20 08/03/20 08/03/20 Range/Units 19:25 19:25 20:18 WBC 12.1 H (4.0-10.5) K/mm3 RBC 3.80 L (4.2-5.4) M/mm3 Hgb 11.8 L (12.5-16.0) gm/dL Hct 35.7 L (37.0-47.0) % MCH 31.1 H (27-31) pg Immature Gran % (Auto) 0.60 H (0.001-0.429) % Immature Gran # (Auto) 0.07 H (0.000-0.0310) K/mm3 Neutrophils % 75.5 H (42-75.0) % Lymphocytes % 13.9 L (20-51) % Monocytes % 9.7 H (0.0-9) % Neutrophils # 9.2 H (1.3-6.0) K/mm3 Monocytes # 1.2 H (0.0-1.0) k/mm3 Potassium 3.3 L (3.4-4.6) mmol/L Chloride 96 L (97-106) mmol/L Anion Gap 14.4 H (6.8-13.8) mmol/L Creatinine 1.95 H (0.4-1.4) mg/dL Est GFR (Non-Af Amer) 26 L (60-130) mL/min Random Glucose 220 H (70-110) mg/dL B-Natriuretic Peptide 64974 H (5-550) pg/mL Albumin 3.3 L (3.4-5.0) gm/dl Urine WBC Trace H (0-5) /hpf Microbiology 08/03/20 20:18 Urine Culture - Preliminary Urine,Catheterized No Growth Laboratory Results WBC 12.1 K/mm3 (4.0-10.5) H 08/03/20 19:25 RBC 3.80 M/mm3 (4.2-5.4) L 08/03/20 19:25 Hgb 11.8 gm/dL (12.5-16.0) L 08/03/20 19:25 Hct 35.7 % (37.0-47.0) L 08/03/20 19:25 MCV 93.9 fl (78-100) 08/03/20 19:25 MCH 31.1 pg (27-31) H 08/03/20 19:25 MCHC 33.1 g/dl (32-36) 08/03/20 19:25 RDW 12.7 % (11.5-14.0) 08/03/20 19:25 Plt Count 312 K/mm3 (150-450) 08/03/20 19:25 MPV 9.6 fl (8-12.5) 08/03/20 19:25 Immature Gran % (Auto) 0.60 % (0.001-0.429) H 08/03/20 19:25 Immature Gran # (Auto) 0.07 K/mm3 (0.000-0.0310) H 08/03/20 19:25 Neutrophils % 75.5 % (42-75.0) H 08/03/20 19:25 Lymphocytes % 13.9 % (20-51) L 08/03/20 19:25 Monocytes % 9.7 % (0.0-9) H 08/03/20 19:25 Eosinophils % 0.1 % (0.0-3.0) 08/03/20 19:25 Basophils % 0.2 % (0.0-1.0) 08/03/20 19:25 Nucleated RBC % 0.0 k/mm3 (0-1) 08/03/20 19:25 Neutrophils # 9.2 K/mm3 (1.3-6.0) H 08/03/20 19:25 Lymphocytes # 1.68 k/mm3 (1.5-3.5) 08/03/20 19:25 Monocytes # 1.2 k/mm3 (0.0-1.0) H 08/03/20 19:25 Eosinophils # 0.0 k/mm3 (0.0-0.7) 08/03/20 19:25 Absolute Basophils 0.0 k/mm3 (0.0-0.1) 08/03/20 19:25 Sodium 133 mmol/L (132-142) 08/03/20 19:25 Plasma Sodium 135 mmol/L (130-142) 08/03/20 19:25 Potassium 3.3 mmol/L (3.4-4.6) L 08/03/20 19:25 Chloride 96 mmol/L (97-106) L 08/03/20 19:25 Carbon Dioxide 25.9 mmol/L (24-32.6) 08/03/20 19:25 Anion Gap 14.4 mmol/L (6.8-13.8) H 08/03/20 19:25 BUN 23 mg/dL (3-23) 08/03/20 19:25 Creatinine 1.95 mg/dL (0.4-1.4) H 08/03/20 19:25 Est GFR (Non-Af Amer) 26 mL/min (60-130) L 08/03/20 19:25 BUN/Creatinine Ratio 11.8 (9.0-21.6) 08/03/20 19:25 Random Glucose 220 mg/dL (70-110) H 08/03/20 19:25 Calcium 9.1 mg/dL (7.9-10.9) 08/03/20 19:25 Calcium Adj for Albumin 9.3 mg/dL (8.4-10.2) 08/03/20 19:25 Total Bilirubin 0.7 mg/dL (0.0-1.1) 08/03/20 19:25 AST 20 U/L (0-48) 08/03/20 19:25 ALT 19 U/L (19-67) 08/03/20 19:25 Alkaline Phosphatase 68 U/L (50-170) 08/03/20 19:25 Troponin I 0.017 ng/mL (0.00-0.10) 08/03/20 19:25 B-Natriuretic Peptide 44428 pg/mL (5-550) H 08/03/20 19:25 Total Protein 7.8 gm/dL (6.2-8.2) 08/03/20 19:25 Albumin 3.3 gm/dl (3.4-5.0) L 08/03/20 19:25 Urine Color Yellow 08/03/20 20:18 Urine Appearance Clear (CLEAR) 08/03/20:18 Urine pH 6.0 pH (5.0-7.0) 08/03/20 20:18 Ur Specific Kimball 1.010 SP.GR. (1.005-1.010) 08/03/20 20:18 Urine Protein Negative mg/dL (NEGATIVE) 08/03/20:18 Urine Glucose (UA) Negative mg/dL (NEGATIVE) 08/03/20 20:18 Urine Ketones Negative mg/dL (NEGATIVE) 08/03/20 20:18 Urine Blood Negative /ul (NEGATIVE) 08/03/20:18 Urine Nitrate Negative (NEGATIVE) 08/03/20 20:18 Urine Bilirubin Negative mg/dl (NEGATIVE) 08/03/20 20:18 Urine Urobilinogen Normal EU/dl (NORMAL) 08/03/20 20:18 Ur Leukocyte Esterase Negative /ul (NEGATIVE) 08/03/20 20:18 Urine RBC Trace /hpf (0-5) 08/03/20 20:18 Urine WBC Trace /hpf (0-5) H 08/03/20 20:18 Ur Epithelial Cells 0-5 /hpf (0-5) 08/03/20 20:18 Urine Bacteria Trace (NONE) 08/03/20 20:18 Hyaline Casts Trace /LPF (NONE) 08/03/20 20:18 Urine Culture Comments Culture to follow 08/03/20 20:18 SARS-CoV-2 (PCR) Not detected (NotDetected) 08/03/20 21:09 Assessment/Plan - Assessment/Plan (1) Altered mental status Assessment: Patient with apparent history of dementia, appears appropriate this time though she is only oriented to place. Unsure if she is unable to respond to questions appropriately due to impaired insight versus difficulty understanding questions/hard of hearing. She is not in any acute distress at this time though. Problem: Acute Qualifiers: Altered mental status type: unspecified Qualified Code(s): R41.82 - Altered mental status, unspecified (2) Status post fall Assessment: Likely due to her normal pressure hydrocephalus, she denies any pain this time. No obvious injuries on examination today. Problem: Acute (3) Normal pressure hydrocephalus Problem: Chronic (4) Memory difficulties Problem: Chronic (5) CRF (chronic renal failure) Assessment: She did receive some gentle fluid resuscitation last night. She also was diuresed some which I think will help relieve her heart strain and hopefully perfuse the kidneys better. Repeat BMP this morning. Will monitor kidney function Problem: Chronic Qualifiers: Chronic kidney disease stage: stage 4 (severe) Qualified Code(s): N18.4 - Chronic kidney disease, stage 4 (severe) (6) Diabetes Assessment: Monitor blood glucose ACHS, low-dose sliding scale ordered. Problem: Chronic (7) Hypertension Assessment: Currently stable, no changes to current treatment plan Problem: Chronic Qualifiers: (1) Altered mental status Problem: Acute Qualifiers: Altered mental status type: unspecified Qualified Code(s): R41.82 - Altered mental status, unspecified (2) Status post fall Problem: Acute (3) Normal pressure hydrocephalus Problem: Suspected (4) Memory difficulties Problem: Acute (5) CRF (chronic renal failure) Problem: Chronic (6) Diabetes Problem: Chronic (7) Hypertension Problem: Chronic Qualifiers: Hospital Course: 89-year-old female with history of dementia and normal pressure hydrocephalus was brought into the hospital under observation due to altered mental status and increased falls. Likely due to her normal pressure hydrocephalus and her dementia. Family unsure what they want to do with her but they are leaning towards home health currently and looking into assisted living. Patient today on exam appears to be at baseline but has no concerns. Her vital signs are stable. Waiting on a BMP to come back to evaluate kidney function but she has chronic kidney disease stage IV and she is not far from her most previous creatinine. Will advise family to take patient to see her PCP in the next 1 to 2 weeks for follow-up on her kidney disease. Blood sugars have been fairly stable, monitored aCHS with low-dose sliding scale. Patient be discharged home with no changes to her chronic medicines. Moon is confined to home due to dementia/normal pressure hydrocephalus and is in need of senior living for help with her chronic medical conditions/medication management. She is also needed physical therapy for weakness and deconditioning and gait instability. The need for home health care skilled services directly related to the time spent [id number] with this patient. Procedures Performed: none Results and Findings: Pending Mircobiology Results 08/03/20 20:18 Urine,Catheterized Urine Culture - Preliminary No Growth Lab Pending Results 08/03/20 19:25: WBC 12.1 H, RBC 3.80 L, Hgb 11.8 L, Hct 35.7 L, MCV 93.9, MCH 31.1 H, MCHC 33.1, RDW 12.7, Plt Count 312, MPV 9.6, Immature Gran % (Auto) 0.60 H, Immature Gran # (Auto) 0.07 H, Neutrophils % 75.5 H, Lymphocytes % 13.9 L, Monocytes % 9.7 H, Eosinophils % 0.1, Basophils % 0.2, Nucleated RBC % 0.0, Neutrophils # 9.2 H, Lymphocytes # 1.68, Monocytes # 1.2 H, Eosinophils # 0.0, Absolute Basophils 0.0 08/03/20 19:25: Sodium 133, Plasma Sodium 135, Potassium 3.3 L, Chloride 96 L, Carbon Dioxide 25.9, Anion Gap 14.4 H, BUN 23, Creatinine 1.95 H, Est GFR (Non- Af Amer) 26 L, BUN/Creatinine Ratio 11.8, Random Glucose 220 H, Calcium 9.1, Gabriel cium Adj for Albumin 9.3, Total Bilirubin 0.7, AST 20, ALT 19, Alkaline Phosphatase 68, Troponin I 0.017, B-Natriuretic Peptide 62432 H, Total Protein 7.8, Albumin 3.3 L 08/03/20 20:18: Urine Color Yellow, Urine Appearance Clear, Urine pH 6.0, Ur Specific Kimball 1.010, Urine Protein Negative, Urine Glucose (UA) Negative, Urine Ketones Negative, Urine Blood Negative, Urine Nitrate Negative, Urine Bilirubin Negative, Urine Urobilinogen Normal, Ur Leukocyte Esterase Negative, Urine RBC Trace, Urine WBC Trace H, Ur Epithelial Cells 0-5, Urine Bacteria Trace, Hyaline Casts Trace, Urine Culture Comments Culture to follow 08/03/20 21:09: SARS-CoV-2 (PCR) Not detected Discharge Location: Home Disposition: Home Health Service Home Health Agency: Other - [facility] services Condition: Stable Face to Face Encounter completed per CMS Guidelines: Yes Discharge Activity: Activity as tolerated Discharge Diet: Consistent carbs Referrals: Marysol Storm MD [Primary Care Provider] - Two Weeks Additional Patient Instructions (free text): [facility] at discharge- call report to [phone] and fax discharge summary, discharge orders, and medications fax to [phone] Complete Home Medications List: Complete Home Medication List: blood sugar diagnostic See Dose Instructions .ROUTE .MEDSUPPLY #20 ea 04/20/18 blood-glucose meter See Dose Instructions .ROUTE .MEDSUPPLY #1 ea 04/20/18 ferrous gluconate 324 mg (38 mg iron) tablet 324 mg PO DAILY tab 04/20/18 nitroglycerin 0.4 mg sublingual tablet 0.4 mg SL Q5-15M PRN 04/20/18 losartan 50 mg tablet 50 mg PO DAILY #30 tab 05/12/20 Durable Medical Equipment 0 .ROUTE .MEDSUPPLY #1 ea 06/23/20 walker See Rx Instructions .ROUTE .MEDSUPPLY #1 ea 06/23/20 escitalopram oxalate 5 mg tablet 5 mg PO DAILY #90 tab 07/03/20 Apixaban [Eliquis] 2.5 mg PO BID 07/16/20 Glimepiride 4 mg PO DAILY 07/16/20 Metoprolol Tartrate 100 mg PO BID 07/16/20 Cheshire-3 Fatty Acids/Fish Oil [Fish Oil 1,000 mg Capsule] 2 ea PO BID 07/16/20 Simvastatin 40 mg PO DAILY 07/16/20 Torsemide 10 mg PO DAILY 07/16/20 Forms: Patient Portal Registration
[2020-08-04] MEDS ORDERED: INSULIN LISPRO 100 UNITS/ML VIAL SC SCH (12:00)
[2020-08-04 12:44] LABS: Anion Gap 12.6 mmol/L (6.8-13.8); BUN/Creatinine Ratio 14.7 (9.0-21.6); Calcium * 9.2 mg/dL (7.9-10.9); Carbon Dioxide 28.6 mmol/L (24-32.6); Estimated Creat Clear 18.6; Potassium 3.2 mmol/L (3.4-4.6)
[2020-08-04 14:06] VITALS: BP 114/60
[2020-08-04] MEDS ORDERED: SIMVASTATIN 40 MG TABLET PO SCH (21:00)
[2020-08-05] MEDS ORDERED: GLIMEPIRIDE 4 MG TABLET PO SCH (09:00)
== END 2020-08-04 14:05 | disposition home health service (06) ==
LOC: ER 18:35 → MS 18:35
PROVIDERS: ADMIT Family Medicine; ATTEND Internal Medicine
DX: R41.82 Altered mental status, unspecified; Z79.84 Long term (current) use of oral hypoglycemic drugs; W19.XXXA Unspecified fall, initial encounter; I12.9 Hypertensive chronic kidney disease with stage 1 through stage 4 chronic kidney disease, or unspecified chronic kidney disease; G91.9 Hydrocephalus, unspecified; E11.22 Type 2 diabetes mellitus with diabetic chronic kidney disease; N18.4 Chronic kidney disease, stage 4 (severe)

== ENCOUNTER 2020-11-11 22:06 | Observation (INO) ==
[2020-11-11 22:30] LABS: Hematocrit 33.9 % (37.0-47.0); Hemoglobin 11.3 gm/dL (12.5-16.0); Mean Cell Volume 89.4 fl (78-100); Mean Corpuscular Hemoglobin 29.8 pg (27-31); Mean Corpuscular Hgb Conc 33.3 g/dl (32-36); Platelet Count 265 K/mm3 (150-450); Red Blood Count 3.79 M/mm3 (4.2-5.4); Red Cell Distribution Width 13.3 % (11.5-14.0); White Blood Count 9.5 K/mm3 (4.0-10.5)
[2020-11-11 22:35] LABS: Total Cells Counted 100
[2020-11-11 22:37] LABS: Prothrombin Time (Patient) 11.5 Seconds (9.1-10.7)
[2020-11-11 22:42] LABS: INR 1.11 INR (0.92-1.08)
[2020-11-11 22:45] LABS: Troponin I 0.028 ng/mL (0.00-0.10)
[2020-11-11 22:46] LABS: Albumin * 3.1 gm/dl (3.4-5.0); Anion Gap 11.4 mmol/L (6.8-13.8); BUN/Creatinine Ratio 24.2 (9.0-21.6); Bilirubin, Total 0.4 mg/dL (0.0-1.1); Ca. Corrected For Albumin 9.6 mg/dL (8.4-10.2); Calcium * 9.2 mg/dL (7.9-10.9); Carbon Dioxide 27.8 mmol/L (24-32.6); Magnesium 1.7 mg/dL (1.2-2.8); Potassium 3.2 mmol/L (3.4-4.6); Total Protein 7.4 gm/dL (6.2-8.2)
[2020-11-11 22:49] LABS: Urine Bilirubin Negative (NEGATIVE); Urine Blood Negative /ul (NEGATIVE); Urine Ketone Negative (NEGATIVE); Urine Nitrite Negative (NEGATIVE); Urine Protein Negative (NEGATIVE); Urine Urobilinogen Normal (NORMAL); Urine pH 5.5 pH (5.0-7.0)
--- NOTE | 2020-11-11 22:50 | ERNOTE ---
Trauma/Assault HPI - Narrative Date of Service: 11/11/20 - General Stated Complaint: FALL,AMS Time Seen by Provider: 11/11/20 22:21 Source: family, EMS Exam Limitations: dementia - Immun/Allergies/Home Medications Immunizations: IMMUNIZATION HX Immunizations Up to Date Yes History of Influenza Vaccine No Hx Pneumococcal Vaccination Yes Allergies/Adverse Reactions: Allergies Penicillins Adverse Reaction (Mild, Verified 10/10/20 19:14) ITCHING, N/V orange juice Adverse Reaction (Verified 10/10/20 19:14) Other rash Home Medications: HOME MEDICATIONS blood sugar diagnostic See Dose Instructions .ROUTE .MEDSUPPLY #20 ea 04/20/18 [Last Taken Unknown] blood-glucose meter See Dose Instructions .ROUTE .MEDSUPPLY #1 ea 04/20/18 [Last Taken Unknown] Durable Medical Equipment 0 .ROUTE .MEDSUPPLY #1 ea 06/23/20 [Last Taken Unknown] walker See Rx Instructions .ROUTE .MEDSUPPLY #1 ea 06/23/20 [Last Taken Unknown] escitalopram oxalate 5 mg tablet 5 mg PO DAILY #90 tab 07/03/20 [Last Taken Unknown] Glimepiride 4 mg PO DAILY 07/16/20 [Last Taken Unknown] Metoprolol Tartrate 100 mg PO BID 07/16/20 [Last Taken Unknown] Simvastatin 40 mg PO DAILY 07/16/20 [Last Taken Unknown] Torsemide 10 mg PO DAILY 07/16/20 [Last Taken Unknown] donepezil 5 mg tablet 5 mg PO HS #30 tab 10/28/20 [Last Taken Unknown] losartan 50 mg tablet 50 mg PO DAILY #30 tab 10/28/20 [Last Taken Unknown] acetaminophen 325 mg tablet 650 mg PO Q4H PRN #60 tab 11/10/20 [Last Taken Unknown] melatonin 5 mg capsule 5 mg PO HS #30 cap 11/10/20 [Last Taken Unknown] polyethylene glycol 3350 17 gram/dose oral powder 17 g PO DAILY PRN #119 g 11/10/20 [Last Taken Unknown] Cyanocobalamin [Vitamin B-12] 1,000 mcg PO DAILY 11/11/20 [Last Taken Unknown] - History of Present Illness Date (Duration): 11/11/20 Time (Timing): 18:00 Narrative: History is provided by daughter. Patient has history of dementia. Patient apparently was assisted to bed at approximately 1800 and then attempted to get up on her own and fell according to the history obtained by the daughters sibling. Patient was described by EMS as responding to painful stimuli. Daughter said that with her dementia she normally is not communicative. Patient has history of atrial fibrillation but family has opted not to have patient on anticoagulants because of frequent falls. Daughter desires comfort care. Location Occurred: Reports: home Method of Injury: Reports: fall Modifying Factors - (Improves): Reports: rest Modifying Factors - (Worsens): Reports: movement Loss of Consciousness: Reports: unsure Review of Systems - Narrative Narrative: Patient has history of dementia and is essentially nonverbal at her baseline. Medical History (Last Reviewed 11/11/20 @ 22:39 by Ying Franco MD) Anemia Onset Date: Unknown Aortic sclerosis Onset Date: Unknown Blood transfusion Onset Date: Unknown CAD (coronary artery disease) Onset Date: Unknown Cataract Onset Date: Unknown Diabetes Onset Date: Unknown HTN (hypertension) Onset Date: Unknown Hyperlipidemia Onset Date: Unknown Surgical History: Surgical History (Last Reviewed 11/11/20 @ 22:39 by Ying Franco MD) Hx of CABG Onset Date: ~1995 Hx of adenoidectomy Onset Date: Unknown Hx of section x4 Hx of colonoscopy Onset Date: 07/20/09 Dr. Bermudez - normal Hx of tonsillectomy Onset Date: Unknown S/P ORIF (open reduction internal fixation) fracture Onset Date: 01/13/04 Left ankle - Dr. Lindsey Uterine cyst Onset Date: Unknown Cyst removed Family History: Family History (Last Reviewed 11/11/20 @ 22:39 by Ying Franco MD) Brother History of bowel resection CAD (coronary artery disease) Brother , Age 54 Asbetos Related Disease Diptheria Father , Age 63 Heart disease Mother , Age 69 Diabetes Heart disease Sister Diabetes Cancer Colon Cancer Sister , Age 81 Hx of heart bypass surgery from heart bypass. Social History: (Last Reviewed 11/11/20 @ 22:39 by Ying Franco MD) Social History: Marital status: / lives independently: Yes current occupational status: retired Highest level of school completed/degree received: high school graduate Service: No Tobacco: Smoking Status: Never smoker Alcohol: alcohol intake: never Substance Use: substance use type: does not use Dietary Habits: caffeine: Yes caffeine comment: 2 daily Physical Exam - Physical Exam Narrative: Patient presents with C-spine immobilization and backboard. Patient is moving all extremities, following commands, and grimacing when upper extremities are moved or left hip is moved and when scalp is palpated. Head Exam: Present: normal inspection Eye Exam: Normal inspection: bilateral, PERRL: bilateral, EOMI: bilateral Ears, Nose, Throat: Present: normal ENT inspection Neck: Present: normal inspection Respiratory: Present: no respiratory distress, normal breath sounds Cardiovascular/Chest: Present: bradycardia Peripheral Pulses: N=norm/S=strong/W=weak/B=bound/A=absent: Radial (R): Normal, Radial (L): Normal, Dorsalis-pedis (R): Weak, Dorsalis-pedis (L): Weak Gastrointestinal/Abdominal: Present: normal bowel sounds, nontender, nondistended Back Exam: Present: normal inspection Extremity Exam: Present: other - Abrasions noted left knee Neurological Exam: Present: other - Dementia and nonverbal at baseline. Patient is following commands.. Absent: facial droop Skin Exam: Present: normal color, other - Lower extremities are cool to palpation. 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 inspection Chest/Respiratory Exam: Present: nml inspection, chest non-tender, breath sounds nml Cardiovascular Exam: Present: bradycardia Peripheral Pulses: Radial (R): Normal, Radial (L): Normal, Dorsalis-pedis (R): Weak, Dorsalis-pedis (L): Weak Back Exam: Present: normal inspection Abdominal Exam: Present: soft, non-tender, no distention, normal bowel sounds Skin Exam: Present: other - abrasion left knee and contusion right posterior hip - C-Collar: C-Collar:: Left in place Progress - Results and Orders Patient's Lab Results:: I have reviewed the patient's lab results. Results and Orders: Laboratory Tests 11/11/20 11/11/20 11/11/20 22:20 22:20 22:20 WBC 9.5 RBC 3.79 L Hgb 11.3 L Hct 33.9 L INR (Anticoag Therapy) 1.11 H Potassium 3.2 L BUN 55 H D Creatinine 2.27 H D Est GFR (Non-Af Amer) 22 L D BUN/Creatinine Ratio 24.2 H Random Glucose 201 H B-Natriuretic Peptide 3482 H Albumin 3.1 L - Vital Signs Patient's Vital Signs:: I have reviewed the patient's vital signs. Vital Signs: Vital Signs 11/11/20 22:08 Temperature 36.1 C Pulse Rate 51 L Respiratory Rate 19 Blood Pressure 157/80 H O2 Sat by Pulse Oximetry 100 - EKG EKG #1 EKG read: Interp. by me - Junctional bradycardia with occasional PVCs. Right bundle branch block. Left ventricular hypertrophy. Rate is 48. - X-Ray X-Ray #1 X-Ray: chest - Chest x-ray demonstrates no acute changes as compared to prior imaging. X-Ray #2 X-Ray: pelvis - No acute changes noted - CT/Ultrasound CT/Ultrasound Narrative: CT head is unremarkable. CT cervical spine shows acute to C6 with central vertebral insufficiency compression injury without retropulsion of fracture fragments. - Progress/Reassessment Chief Complaint: Fall Plan - Plan Plan: Patient will be admitted following fall resulting in C6 compression fracture. Patient has baseline dementia and is DNR. Patient is noted to have hypokalemia, renal insufficiency, bradycardia currently on beta-dimitrios, and what appears to be chronically elevated BNP. Case is reviewed with accepting physician. Departure Clinical Impression: Altered mental status, Fall, Dementia, Anemia, Compression fracture of cervical spine, Hypokalemia, Renal insufficiency, Bradycardia - Departure Disposition: Short Term Hospital Inpatient Condition: Good Referrals: Marysol Storm MD [Primary Care Provider] - Abhilash Lovell DO [Staff Physician] - Critical Care Time - Critical Care Critical Time Spent:: No
[2020-11-11 22:54] LABS: Atypical (Reactive) Lymph 8 % (0-2); Band 1 % (0-2.0); Lymphocyte 16 % (20-51); Monocyte 4 % (0-9); Neutrophil 71 % (42-75); Neutrophil # 6.7 K/mm3 (1.3-6.0); Platelet Estimate Normal (NORMAL); RBC Morphology Normal (NORMAL)
[2020-11-11 22:56] LABS: Urine Appearance Clear (CLEAR); Urine Bacteria None Seen; Urine Color Yellow; Urine RBC None Seen /hpf (0-5); Urine WBC None Seen /hpf (0-5)
[2020-11-12] MEDS ORDERED: ACETAMINOPHEN 325 MG TABLET PO PRN ×2 (02:54→07:07)
[2020-11-12] MEDS ORDERED: NORMAL SALINE 1,000 ML IV ONE (07:06)
[2020-11-12] MEDS ORDERED: METOPROLOL TARTRATE 100 MG TABLET PO SCH (09:00)
[2020-11-12] MEDS ORDERED: FLU VACC QS2020-21(6MOS UP)/PF 60 MCG/0.5 ML SYRINGE IM ONE (09:00)
[2020-11-12] MEDS ORDERED: ESCITALOPRAM OXALATE 5 MG TABLET PO SCH (09:00)
[2020-11-12] MEDS ORDERED: GLIMEPIRIDE 4 MG TABLET PO SCH (09:00)
[2020-11-12] MEDS ORDERED: LOSARTAN POTASSIUM 50 MG TABLET PO SCH (09:00)
[2020-11-12] MEDS ORDERED: METOPROLOL TARTRATE 100 MG, METOPROLOL TARTRATE 50 MG PO SCH ×2 (09:00)
--- NOTE | 2020-11-12 13:44 | HP ---
Chief Complaint - Chief Complaint Date of Service: 11/12/20 Time of Service: 13:20 Chief Complaint: c6 fracture, fall, neck pain History of Present Illness: 89-year-old female with advanced Alzheimer's dementia brought in to the hospital by EMS after falling out of her bed at roughly [address] scan showed possible acute C6 compression fracture with multiple old fractures in her T- spine. Patient appeared to be neurologically intact and the fracture appeared to be stable. Patient due to her dementia was difficult to treat, uncooperative. Lab work showed her to have an acute kidney injury with elevated creatinine at 2.27 likely due to poor oral intake. Rest of her lab work was fairly unremarkable. Patient was admitted due to dehydration and to help with her neck pain. After her admission, family decided on comfort measures only and so she did not receive any fluids overnight or any other treatment at that time. Currently she is comfortable, resting peacefully in her hospital bed. Her vital signs been stable aside from a low heart rate which she is on a large dose of metoprolol twice a day, this currently is being held. Medical History (Last Reviewed 11/12/20 @ 01:16 by Blu Patricia RN) Anemia Onset Date: Unknown Aortic sclerosis Onset Date: Unknown Blood transfusion Onset Date: Unknown CAD (coronary artery disease) Onset Date: Unknown Cataract Onset Date: Unknown Diabetes Onset Date: Unknown HTN (hypertension) Onset Date: Unknown Hyperlipidemia Onset Date: Unknown Surgical History: Surgical History (Last Reviewed 11/12/20 @ 01:16 by Blu Patricia RN) Hx of CABG Onset Date: ~1995 Hx of adenoidectomy Onset Date: Unknown Hx of section x4 Hx of colonoscopy Onset Date: 07/20/09 Dr. Bermudez - normal Hx of tonsillectomy Onset Date: Unknown S/P ORIF (open reduction internal fixation) fracture Onset Date: 01/13/04 Left ankle - Dr. Lindsey Uterine cyst Onset Date: Unknown Cyst removed Family History: Family History (Last Reviewed 11/12/20 @ 01:17 by Blu Patricia RN) Brother History of bowel resection CAD (coronary artery disease) Brother , Age 54 Asbetos Related Disease Diptheria Father , Age 63 Heart disease Mother , Age 69 Diabetes Heart disease Sister Diabetes Cancer Colon Cancer Sister , Age 81 Hx of heart bypass surgery from heart bypass. Social History: (Last Reviewed 11/12/20 @ 01:17 by Blu Patricia RN) Social History: Marital status: / lives independently: Yes current occupational status: retired Highest level of school completed/degree received: high school graduate Service: No Tobacco: Smoking Status: Never smoker Alcohol: alcohol intake: never Substance Use: substance use type: does not use Dietary Habits: caffeine: Yes caffeine comment: 2 daily Review Of Systems (GEN) - Review of Systems Additional Comments: Unable to assess due to Alzheimer's dementia, and patient resting comfortably in bed. Did not want to agitate her or wake her up as she is comfort measures only at this time Immunizations: IMMUNIZATION HX Immunizations Up to Date Yes History of Influenza Vaccine No Hx Pneumococcal Vaccination Yes Allergies/Adverse Reactions: Allergies Allergy/AdvReac Type Severity Reaction Status Date / Time Penicillins AdvReac Mild ITCHING, Verified 10/10/20 19:14 N/V orange juice AdvReac Other Verified 10/10/20 19:14 Home Medications: HOME MEDICATIONS blood sugar diagnostic See Dose Instructions .ROUTE .MEDSUPPLY #20 ea 04/20/18 [Last Taken Unknown] blood-glucose meter See Dose Instructions .ROUTE .MEDSUPPLY #1 ea 04/20/18 [Last Taken Unknown] Durable Medical Equipment 0 .ROUTE .MEDSUPPLY #1 ea 06/23/20 [Last Taken Unknown] walker See Rx Instructions .ROUTE .MEDSUPPLY #1 ea 06/23/20 [Last Taken Unknown] escitalopram oxalate 5 mg tablet 5 mg PO DAILY #90 tab 07/03/20 [Last Taken Unknown] Glimepiride 4 mg PO DAILY 07/16/20 [Last Taken Unknown] Metoprolol Tartrate 150 mg PO BID 07/16/20 [Last Taken Unknown] Simvastatin 40 mg PO DAILY 07/16/20 [Last Taken Unknown] Torsemide 10 mg PO DAILY 07/16/20 [Last Taken Unknown] donepezil 5 mg tablet 5 mg PO HS #30 tab 10/28/20 [Last Taken Unknown] losartan 50 mg tablet 50 mg PO DAILY #30 tab 10/28/20 [Last Taken Unknown] acetaminophen 325 mg tablet 650 mg PO Q4H PRN #60 tab 11/10/20 [Last Taken Unknown] melatonin 5 mg capsule 5 mg PO HS #30 cap 11/10/20 [Last Taken Unknown] polyethylene glycol 3350 17 gram/dose oral powder 17 g PO DAILY PRN #119 g 11/10/20 [Last Taken Unknown] Cyanocobalamin [Vitamin B-12] 1,000 mcg PO DAILY 11/11/20 [Last Taken Unknown] Exam - Exam Vital Signs: Vital Signs - Last Taken Temp 36.6 C 11/12/20 00:41 Pulse 50 L 11/12/20 01:54 Resp 18 11/12/20 00:57 BP 116/57 11/12/20 00:57 Pulse Ox 96 11/12/20 00:57 Constitutional: Present: Somnolent, Elderly Respiratory: Present: lungs clear, normal breath sounds Cardiovascular/Chest: Present: bradycardia, systolic murmur Abdomen: Present: soft, nontender, nondistended Skin Exam: Present: normal color, warm/dry Appearance: Present: impaired insight, impaired recent memory Diagnostic Studies: Abnormal Lab Results 11/11/20 11/11/20 11/11/20 Range/Units 22:20 22:20 22:20 RBC 3.79 L (4.2-5.4) M/mm3 Hgb 11.3 L (12.5-16.0) gm/dL Hct 33.9 L (37.0-47.0) % Lymphocytes % (Manual) 16 L (20-51) % Neutrophils # (Manual) 6.7 H (1.3-6.0) K/mm3 Atypic/Reactive Lymphs 8 H (0-2) % PT 11.5 H (9.1-10.7) Seconds INR (Anticoag Therapy) 1.11 H (0.92-1.08) INR Potassium 3.2 L (3.4-4.6) mmol/L BUN 55 H D (3-23) mg/dL Creatinine 2.27 H D (0.4-1.4) mg/dL Est GFR (Non-Af Amer) 22 L D (60-130) mL/min BUN/Creatinine Ratio 24.2 H (9.0-21.6) Random Glucose 201 H (70-110) mg/dL B-Natriuretic Peptide 3482 H (5-550) pg/mL Albumin 3.1 L (3.4-5.0) gm/dl Laboratory Results WBC 9.5 K/mm3 (4.0-10.5) 11/11/20 22:20 RBC 3.79 M/mm3 (4.2-5.4) L 11/11/20 22:20 Hgb 11.3 gm/dL (12.5-16.0) L 11/11/20 22:20 Hct 33.9 % (37.0-47.0) L 11/11/20 22:20 MCV 89.4 fl (78-100) 11/11/20 22:20 MCH 29.8 pg (27-31) 11/11/20 22:20 MCHC 33.3 g/dl (32-36) 11/11/20 22:20 RDW 13.3 % (11.5-14.0) 11/11/20 22:20 Plt Count 265 K/mm3 (150-450) 11/11/20 22:20 MPV 10.0 fl (8-12.5) 11/11/20 22:20 Neutrophils % (Manual) 71 % (42-75) 11/11/20 22:20 Band Neuts % (Manual) 1 % (0-2.0) 11/11/20 22:20 Lymphocytes % (Manual) 16 % (20-51) L 11/11/20 22:20 Monocytes % (Manual) 4 % (0-9) 11/11/20 22:20 Neutrophils # (Manual) 6.7 K/mm3 (1.3-6.0) H 11/11/20 22:20 Lymphocytes # (Manual) 1.5 k/mm3 (1.5-3.5) 11/11/20 22:20 Monocytes # (Manual) 0.4 k/mm3 (0.0-1.0) 11/11/20 22:20 Atypic/Reactive Lymphs 8 % (0-2) H 11/11/20 22:20 Platelet Estimate Normal (NORMAL) 11/11/20 22:20 RBC Morphology Normal (NORMAL) 11/11/20 22:20 PT 11.5 Seconds (9.1-10.7) H 11/11/20 22:20 INR (Anticoag Therapy) 1.11 INR (0.92-1.08) H 11/11/20 22:20 Sodium 135 mmol/L (132-142) 11/11/20 22:20 Plasma Sodium 137 mmol/L (130-142) 11/11/20 22:20 Potassium 3.2 mmol/L (3.4-4.6) L 11/11/20 22:20 Chloride 99 mmol/L (97-106) 11/11/20 22:20 Carbon Dioxide 27.8 mmol/L (24-32.6) 11/11/20 22:20 Anion Gap 11.4 mmol/L (6.8-13.8) 11/11/20 22:20 BUN 55 mg/dL (3-23) H D 11/11/20 22:20 Creatinine 2.27 mg/dL (0.4-1.4) H D 11/11/20 22:20 Est GFR (Non-Af Amer) 22 mL/min (60-130) L D 11/11/20 22:20 BUN/Creatinine Ratio 24.2 (9.0-21.6) H 11/11/20 22:20 Random Glucose 201 mg/dL (70-110) H 11/11/20 22:20 Calcium 9.2 mg/dL (7.9-10.9) 11/11/20 22:20 Calcium Adj for Albumin 9.6 mg/dL (8.4-10.2) 11/11/20 22:20 Magnesium 1.7 mg/dL (1.2-2.8) 11/11/20 22:20 Total Bilirubin 0.4 mg/dL (0.0-1.1) 11/11/20 22:20 AST 23 U/L (0-48) 11/11/20 22:20 ALT 28 U/L (19-67) 11/11/20 22:20 Alkaline Phosphatase 108 U/L (50-170) 11/11/20 22:20 Troponin I 0.028 ng/mL (0.00-0.10) 11/11/20 22:20 B-Natriuretic Peptide 3482 pg/mL (5-550) H 11/11/20 22:20 Total Protein 7.4 gm/dL (6.2-8.2) 11/11/20 22:20 Albumin 3.1 gm/dl (3.4-5.0) L 11/11/20 22:20 Urine Color Yellow 11/11/20 22:44 Urine Appearance Clear (CLEAR) 11/11/20 22:44 Urine pH 5.5 pH (5.0-7.0) 11/11/20 22:44 Ur Specific [place] 1.020 SP.GR. (1.005-1.010) 11/11/20 22:44 Urine Protein Negative mg/dL (NEGATIVE) 11/11/20 22:44 Urine Glucose (UA) Negative mg/dL (NEGATIVE) 11/11/20 22:44 Urine Ketones Negative mg/dL (NEGATIVE) 11/11/20 22:44 Urine Blood Negative /ul (NEGATIVE) 11/11/20 22:44 Urine Nitrate Negative (NEGATIVE) 11/11/20 22:44 Urine Bilirubin Negative mg/dl (NEGATIVE) 11/11/20 22:44 Urine Urobilinogen Normal EU/dl (NORMAL) 11/11/20 22:44 Ur Leukocyte Esterase Negative /ul (NEGATIVE) 11/11/20 22:44 Urine RBC None seen /hpf (0-5) 11/11/20 22:44 Urine WBC None seen /hpf (0-5) 11/11/20 22:44 Ur Epithelial Cells None seen /hpf (0-5) 11/11/20 22:44 Urine Bacteria None seen (NONE) 11/11/20 22:44 Urine Culture Comments No culture indicated 11/11/20 22:44 SARS-CoV-2 (PCR) Not detected (NotDetected) 11/11/20 23:11 Assessment/Plan - Narrative Narrative: 89-year-old female admitted overnight for pain control and due to dehydration. Treatment plan changed after patient was made comfort measures only. Patient is currently resting comfortably in bed, holding all her medications at this time. Will provide any pain medicine if needed though she again is comfortable and so we will hold this until it is necessary. Patient's family has agreed with home hospice who is also accepted the patient. Patient will be discharged later this afternoon into their care. I spent 20 minutes with her family discussing treatment options and likely outcomes and we are all on the same page as far as making her as comfortable as possible to provide the best quality of life for the remainder of her time. Her medications will be discontinued at discharge. Hospice can reach out to either myself or her PCP for medication orders. - Assessment/Plan (1) Compression fracture of cervical spine Problem: Acute (2) Status post fall Problem: Resolved (3) Dementia Problem: Chronic Qualifiers: (4) Hypertension Problem: Chronic Qualifiers: (5) CHF (congestive heart failure) Problem: Chronic
--- NOTE | 2020-11-12 13:46 | DS ---
(1) Compression fracture of cervical spine Problem: Acute (2) Status post fall Problem: Resolved (3) Dementia Problem: Chronic Qualifiers: (4) Hypertension Problem: Chronic Qualifiers: (5) CHF (congestive heart failure) Problem: Chronic Date of Discharge:: 11/12/20 Hospital Course: 89-year-old female admitted overnight for pain control and due to dehydration. Treatment plan changed after patient was made comfort measures only. Patient is currently resting comfortably in bed, holding all her medications at this time. Will provide any pain medicine if needed though she again is comfortable and so we will hold this until it is necessary. Patient's family has agreed with home hospice who is also accepted the patient. Patient will be discharged later this afternoon into their care. I spent 20 minutes with her family discussing treatment options and likely outcomes and we are all on the same page as far as making her as comfortable as possible to provide the best quality of life for the remainder of her time. Her medications will be discontinued at discharge. Hospice can reach out to either myself or her PCP for medication orders. Procedures Performed: none Results and Findings: Lab Pending Results 11/11/20 22:20: WBC 9.5, RBC 3.79 L, Hgb 11.3 L, Hct 33.9 L, MCV 89.4, MCH 29.8, MCHC 33.3, RDW 13.3, Plt Count 265, MPV 10.0, Neutrophils % (Manual) 71, Band Neuts % (Manual) 1, Lymphocytes % (Manual) 16 L, Monocytes % (Manual) 4, Neutrophils # (Manual) 6.7 H, Lymphocytes # (Manual) 1.5, Monocytes # (Manual) 0.4, Atypic/Reactive Lymphs 8 H, Platelet Estimate Normal, RBC Morphology Normal 11/11/20 22:20: PT 11.5 H, INR (Anticoag Therapy) 1.11 H 11/11/20 22:20: Sodium 135, Plasma Sodium 137, Potassium 3.2 L, Chloride 99, Carbon Dioxide 27.8, Anion Gap 11.4, BUN 55 H D, Creatinine 2.27 H D, Est GFR (Non-Af Amer) 22 L D, BUN/Creatinine Ratio 24.2 H, Random Glucose 201 H, Calcium 9.2, Calcium Adj for Albumin 9.6, Magnesium 1.7, Total Bilirubin 0.4, AST 23, ALT 28, Alkaline Phosphatase 108, Troponin I 0.028, B-Natriuretic Peptide 3482 H, Total Protein 7.4, Albumin 3.1 L 11/11/20 22:44: Urine Color Yellow, Urine Appearance Clear, Urine pH 5.5, Ur Specific [place] 1.020, Urine Protein Negative, Urine Glucose (UA) Negative, Urine Ketones Negative, Urine Blood Negative, Urine Nitrate Negative, Urine Bilirubin Negative, Urine Urobilinogen Normal, Ur Leukocyte Esterase Negative, Urine RBC None seen, Urine WBC None seen, Ur Epithelial Cells None seen, Urine Bacteria None seen, Urine Culture Comments No culture indicated 11/11/20 23:11: SARS-CoV-2 (PCR) Not detected Discharge Location: Home Disposition: Hospice Home Home Health Agency: [facility] Condition: Critical Discharge Activity: Activity as tolerated Discharge Diet: General/regular food Referrals: Marysol Storm MD [Primary Care Provider] - One Week Additional Patient Instructions (free text): [facility] to see at home to do admission tomorrow. Prescriptions (Any new or edited meds): Lorazepam [Ativan Intensol] 2 mg PO Q2H #30 oral.conc Transmission Status: Received by [facility] Morphine Sulfate [Morphine Sulfate Conc. Oral Solution] 5 mg PO Q4H #30 ml Transmission Status: Received by [facility] Complete Home Medications List: Complete Home Medication List: Lorazepam [Ativan Intensol] 2 mg PO Q2H #30 oral.conc 11/12/20 Morphine Sulfate [Morphine Sulfate Conc. Oral Solution] 5 mg PO Q4H #30 ml 11/12/20
[2020-11-12 14:21] VITALS: BP 144/56
[2020-11-12] MEDS ORDERED: MELATONIN 3,000 MCG TABLET PO SCH (21:00)
[2020-11-12] MEDS ORDERED: SIMVASTATIN 40 MG TABLET PO SCH (21:00)
[2020-11-12] MEDS ORDERED: DONEPEZIL HCL 5 MG TABLET PO SCH (21:00)
== END 2020-11-12 14:47 | disposition hospice, home (50) ==
LOC: ER 22:06 → MS 11-12 00:33 → INTOOBSV 11-12 00:33 → MS 11-12 01:10
PROVIDERS: ADMIT Family Medicine; ATTEND Family Medicine